=== PATIENT | female | born 1990 | race American Indian/Alaskan Native ===

== ENCOUNTER 2019-08-23 11:48 | Emergency (ER) | payer SELFPAY ==
--- NOTE | 2019-08-23 12:28 | Event Note ---
ED Screening Note Date of service: 08/23/19 Time: 12:27 ED Screening Note: Pt complains of body aches, sore throat, TOUSSAINT, and cough x 2 weeks +diarrhea This initial assessment/diagnostic orders/clinical plan/treatment(s) is/are subject to change based on patients health status, clinical progression and re- assessment by fellow clinical providers in the ED. Further treatment and workup at subsequent clinical providers discretion. Patient/guardian urged not to elope from the ED as their condition may be serious if not clinically assessed and managed. Initial orders include:
--- NOTE | 2019-08-23 13:11 | XRay Report ---
CHEST 2 VIEWS, 08/23/2019 12:41 PM INDICATION: Cough COMPARISON: None FINDINGS: Support devices: None Heart: The cardiac silhouette is normal in size. Lungs/pleura: The lungs are well expanded and appear clear of focal airspace disease or significant p leural effusion. Additional findings: No significant acute abnormality. IMPRESSION: 1. No evidence of acute cardiopulmonary process. Signer Name: Alpa Alonso MD Signed: 08/23/2019 1:07 PM Workstation Name: [id number]
--- NOTE | 2019-08-23 15:47 | Emergency Department Report ---
Minor Respiratory - HPI Chief Complaint: Sore Throat Stated Complaint: SORE THROAT/SOB Time Seen by Provider: 08/23/19 12:26 Duration: 3 Days Pain Location: Throat Severity: moderate Minor Respiratory: Yes Sore Throat, Yes Able to Tolerate Fluids, Yes Cough, No Rhinorrhea, No Ear Pain, No Sick Contacts, No Hemoptysis, No Chest Pain, No Shortness of Breath, No Fever Other History: Is a 29-year-old female presents the ED complaining of sore throat, coughing and some body aches for the past 3 days. Patient states that coughing is intermittent dry [place] her to have some muscle aches and pains. Patient states she is also had pain with swallowing and pain to her throat. Patient does not have any difficulty swallowing. She denies fever/chills/nausea or vomiting. ED Review of Systems ROS: Stated complaint: SORE THROAT/SOB Other details as noted in HPI Comment: All other systems reviewed and negative ED Past Medical Hx - Past Medical History Previous Medical History?: Yes Additional medical history: UTI - Surgical History Past Surgical History?: No - Social History Smoking Status: Current Every Day Smoker Substance Use Type: Alcohol - Medications Home Medications: Home Medications Medication Instructions Recorded Confirmed Last Taken Type Ibuprofen [Motrin 800 MG tab] 800 mg PO Q8HR PRN #15 tablet 12/28/14 01/02/15 Unknown Rx Sulfamethoxazole/Trimethoprim 1 each PO BID #10 tablet 12/28/14 01/02/15 Unknown Rx [Bactrim Ds] Acetaminophen/Codeine [Tylenol #3] 1 tab PO BID #14 tablet 01/02/15 Unknown Rx cephALEXin [Keflex] 500 mg PO Q12HR #14 cap 01/02/15 Unknown Rx Ibuprofen [Motrin 800 MG tab] 800 mg PO Q8HR PRN #30 tablet 08/23/19 Unknown Rx Nystas/Diphen/Xyl Visc/Mylanta 15 ml MM Q6H PRN #120 ml 08/23/19 Unknown Rx [Magic Mouthwash] Minor Respiratory Exam - Exam General: Vital signs noted. No distress. Alert and acting appropriately. HEENT: Yes Moist Mucous Membranes, No Pharyngeal Erythema, No Pharyngeal Exudates, No Rhinorrhea, No Conjuctival Injection, No Frontal Tenderness, No Maxillary Tenderness Ear: Neither TM Bulge, Neither TM Erythema, Neither EAC Pain, Neither EAC Discharge Neck: Yes Supple, No Adenopathy Lungs: Yes Good Air Exchange, No Wheezes, No Ronchi, No Stridor, No Cough, No Labored Respirations, No Retractions, No Use of Accessory Muscles, No Other Abnormal Lung Sounds Heart: Yes Regular, No Murmur Abdomen: Yes Normal Bowel Sounds, No Tenderness, No Peritoneal Signs Skin: No Rash, No Edema Neurologic: Alert and oriented, no deficits. Musculoskeletal: Unremarkable. ED Course Vital Signs 08/23/19 08/23/19 12:08 12:26 Temperature 98.3 F 98.3 F Pulse Rate 79 80 Respiratory 16 16 Rate Blood Pressure 116/80 116/80 O2 Sat by Pulse 98 98 Oximetry ED Medical Decision Making - Radiology Data Radiology results: report reviewed, image reviewed COMPARISON: None FINDINGS: Support devices: None Heart: The cardiac silhouette is normal in size. Lungs/pleura: The lungs are well expanded and appear clear of focal airspace disease or significant pleural effusion. Additional findings: No significant acute abnormality. IMPRESSION: 1. No evidence of acute cardiopulmonary process. Signer Name: Alpa Alonso MD Signed: 08/23/2019 1:07 PM Workstation Name: [id number] Transcribed By: EB Dictated By: Alpa Alonso MD Electronically Authenticated By: Alpa Alonso MD Signed Date/Time: 08/23/19 5969 - Medical Decision Making 29-year-old female presents with throat pain secondary to upper respiratory infection. Rapid strep was negative. Chest x-ray was negative as well. I discussed this findings with the patient. I discussed the patient this is most likely a viral infection and need to get symptomatic relief. Vital signs are normal patient is in no acute distress. Discussed with patient to follow-up with a primary care physician. Critical care attestation.: If time is entered above; I have spent that time in minutes in the direct care of this critically ill patient, excluding procedure time. ED Disposition Clinical Impression: Tonsillitis, Upper respiratory infection Disposition: DC-01 TO HOME OR SELFCARE Is pt being admited?: No Does the pt Need Aspirin: No Condition: Stable Instructions: Upper Respiratory Infection (ED), Viral Syndrome (ED), Pharyngitis (ED) Additional Instructions: Make sure to follow up with the primary care physician as discussed. Take all your medications as you've been prescribed. If you have any worsening symptoms or develop new symptoms please return to ED immediately. Referrals: PRIMARY CARE,MD [Primary Care Provider] - 3-5 Days Forms: Accompanied Note, Work/School Release Form(ED) Time of Disposition: 15:52
[2019-08-23 17:33] VITALS: BP 112/63
== END 2019-08-23 16:24 | disposition home or self-care (01) ==
LOC: ED 11:48
DX: J03.90 Acute tonsillitis, unspecified (principal); F17.200 Nicotine dependence, unspecified, uncomplicated; Z72.89 Other problems related to lifestyle; Z79.899 Other long term (current) drug therapy
CPT/HCPCS: 71046; 87116; 87430; 99284